=== PATIENT | male | born 1980 | race African-American/Black ===

== ENCOUNTER 2024-01-27 19:55 | Emergency (ER) | payer SELFPAY ==
[2024-01-27 19:59] VITALS: BP 194/109; PULSE 95; RESP 20; TEMP 36.5; O2SAT 98
--- NOTE | 2024-01-27 20:04 | ED.SOB ---
HPI - SOB/Dyspnea General Chief Complaint: Shortness of Breath/Dyspnea Stated Complaint: COUGH/ASTHMA Time Seen by Provider: 01/27/24 20:02 Source: patient Mode of arrival: ambulatory Limitations: no limitations History of Present Illness HPI Narrative: Patient is telling me that he is from [place], came to take care of his aunt 3 months ago. His family physician at [place] unable to prescribe medicine for him. Been coughing with wheezing over the last few days/weeks, was ask to leave work and come back after getting better. Patient is very anxious about it and like to go back to work as soon as possible. Patient is telling me that he knows his body and he know what the best medicine making feel better quickly which is prednisone 50 mg once a day for 5 days and Tussionex 5 mL twice a day. Patient denies any shortness of breath, fever, chills, chest pain or back pain. Related Data Allergies Allergy/AdvReac Type Severity Reaction Status Date / Time No Known Allergies Allergy Verified 01/27/24 20:00 Review of Systems Review of Systems: All systems reviewed & are unremarkable except as noted in HPI and below Exam Narrative: General appearance: Well-developed, well-nourished Skin: Normal color diaphoretic Head: Normocephalic, nontraumatic Eyes: Clear conjunctiva ENT: Oropharynx normal, ears normal, nose normal Neck: Supple, nontender Chest and respiratory: Airway patent, no respiratory distress, no accessory muscle use, few scattered rhonchi bilaterally Heart: Regular rate/rhythm Abdomen: Soft, nontender, no organomegaly, quiet bowel sounds Vascular: Normal peripheral pulses, normal capillary refill. Musculoskeletal: Normal range of motion, nontender back Neurologic: Alert and oriented ?3, [employer] is normal as tested, no gross motor deficit Course Vital Signs Vital signs: Vital Signs Temperature 36.5 C 01/27/24 19:59 Pulse Rate 95 01/27/24 19:59 Respiratory Rate 20 01/27/24 19:59 Blood Pressure 194/109 H 01/27/24 19:59 Pulse Oximetry 98 01/27/24 19:59 Oxygen Delivery Room Air 01/27/24 19:59 Temperature 36.5 C 01/27/24 19:59 Pulse Rate 95 01/27/24 19:59 Respiratory Rate 20 01/27/24 19:59 Blood Pressure 194/109 H 01/27/24 19:59 Pulse Oximetry 98 01/27/24 19:59 Oxygen Delivery Room Air 01/27/24 19:59 MDM - SOB/Dyspnea MDM Narrative Medical decision making narrative: Patient came to the emergency room with coughing and wheezing History of COPD with intermittent flare-up. Blood pressure arrival to the ED was 194/109, patient denied any history of hypertension. Patient requested prednisone 50 mg once a day for 5 days and Tussionex 5 mL b.i.d. 240 mL. Patient is telling me this is only medication can break down his bronchitis and making go back to work as soon as possible. He declined to accept any other cough medication or blood workup or chest x-ray or workup for the new diagnosed hypertension. Patient does not care about all that stuff he would like to have prednisone and Tussionex and he would like to go home soon as possible. He signed a paper refusing any workup in the emergency room. I was not able to prescribe Tussionex. Not available in the system. Patient requested Phenergan with codeine. I did explain to the patient that I cannot prescribe that medicine and my recommendation is delsym. 0.1 mg of clonidine p.o. ordered. Patient was so his done to take this medication because he believes his blood pressure is high because of his bronchitis Patient could not wait for repeat blood pressure and more clonidine. Diagnosis at the time of discharge is a bronchitis, prescription of prednisone,
--- NOTE | 2024-01-27 20:15 | PC.NURSE ---
Patient does not want to have vital signs monitored or blood drawn.
[2024-01-27] MEDS: cloNIDine HCL 0.1 MG TABLET PO (20:55)
[2024-01-27 20:57] VITALS: O2SAT 98
--- NOTE | 2024-01-27 20:59 | PC.NURSE ---
Patient angry upon discharge. States he wants Tussionex and the doctor should be able to see that he is prescribed that medication in [place]. Patient agreed to take Clonidine for high blood pressure but did not want to stay to be monitored. Patient walked out without signing discharge papers.
== END 2024-01-27 21:06 | disposition home or self-care (01) ==
LOC: ANHED 20:36
PROVIDERS: Emergency Provider Emergency Medicine
DX: J20.9 Acute bronchitis, unspecified (principal); J45.909 Unspecified asthma, uncomplicated; I10 Essential (primary) hypertension
CPT/HCPCS: 99283; A9270